=== PATIENT | female | born 1955 | race African-American/Black ===

== ENCOUNTER → 2018-02-17 | Outpatient (CLI) | payer MEDICARE ==
[~2018-02-17] MED LIST: ALLOPURINOL100 MG PO; AMITIZA8 MCG PO; AMLODIPINE BESYL5 MG PO; ASPIRIN81 MG PO; CALCITRIOL0.5 MCG PO; CARVEDILOL25 MG PO; CETIRIZINE HCL10 M1 PO; CLONIDINE HCL0.1 MG PO; CYANOCOBALAMIN SL; CYCLOBENZAPRINE10 MG PO; CYMBALTA30 MG PO; DICYCLOMINE HCL20 MG PO; DOXAZOSIN MESYLA4 MG PO; DOXEPIN HCL75 MG PO; ENBREL50 MG/1 ML SQ; FOLIC ACID1 MG PO; FUROSEMIDE40 MG PO; HUMULIN 70100 UNIT/1 SQ; HYDROCODON-ACE1 EAC9 PO; HYDROXYZINE HCL25 MG PO; KWELL TOP; LEFLUNOMIDE20 MG PO; METHADONE HCL10 MG PO; NOVOLOG MI100 UNITS/ SQ; NYSTATIN100000 UNI PO; PRAMIPEXOLE DI0.5 MG PO; PREDNISONE5 MG PO; PROAIR INHALER; QVAR INHALER; SIMVASTATIN40 MG PO; STROMECTOL3 MG PO; VICODIN
--- NOTE | 2018-02-17 15:19 | Diagnostic Imaging Report ---
TECHNIQUE: Magnetic resonance imaging of the LEFT ANKLE was performed WITHOUT injected contrast. COMPARISON: None available. HISTORY: Hindfoot pain FINDINGS: LIGAMENTS: Medial Complex: Deltoid complex intact. Lateral Complex: Intact TENDONS: Medial: Posterior tibial and flexor tendons intact. Lateral: Peroneal tendons intact. Anterior: Anterior tibial and extensor tendons intact. Achilles: Achilles tendon intact. BONES: Stress/insufficiency fracture of the posterior calcaneus. Bone marrow edema throughout the calcaneus. JOINTS: Cartilage: No focal defect is identified involving the tibiotalar joint. Other: Fluid within the joints is within physiologic limits. SOFT TISSUES: Thickening of the plantar fascia with these a fight formation. IMPRESSION: Stress/insufficiency fracture of the posterior calcaneus. Signed by: Dr. Pierre Villarreal M.D. on 02/17/2018 3:15 PM
== END ==
LOC: MRI 13:42
PROVIDERS: ATTEND Podiatrist Foot & Ankle Surgery
DX: R60.0 Localized edema (principal); T63.431A Toxic effect of venom of caterpillars, accidental (unintentional), initial encounter

== ENCOUNTER → 2018-10-26 | Day surgery (SDC) | payer MEDICARE ==
[2018-10-19 10:53] LABS: BASOPHILS # (AUTO) 0.1 (0.0-0.1); BASOPHILS % 1.2 % (0.0-1.0); EOSINOPHILS # (AUTO) 0.2 (0.0-0.4); EOSINOPHILS % 3.5 % (0.0-6.0); HEMATOCRIT 36.5 % (34.2-44.1); HEMOGLOBIN 11.6 g/dL (12.0-16.0); LYMPHOCYTES % 38.6 % (18.0-39.1); MEAN CORPUSCULAR HEMOGLOBIN 27.4 pg (28-32); MEAN CORPUSCULAR HGB CONC 31.8 g/dL (31-35); MEAN CORPUSCULAR VOLUME 86.1 fL (81-99); MONOCYTES # (AUTO) 0.7 (0.2-0.8); MONOCYTES % 12.7 % (4.4-11.3); NEUTROPHILS # (AUTO) 2.2 (2.1-6.9); NEUTROPHILS % 43.6 % (38.7-80.0); PLATELET COUNT 147 x10e3/uL (140-360); RED BLOOD COUNT 4.24 x10e6/uL (3.6-5.1); RED CELL DISTRIBUTION WIDTH 14.8 % (11.7-14.4)
[2018-10-19 11:03] LABS: INR 0.93; PROTHROMBIN TIME 13.3 seconds (11.9-14.5)
[2018-10-19 11:04] LABS: PARTIAL THROMBOPLASTIN TIME 24.7 seconds (23.8-35.5)
[2018-10-19 11:24] LABS: ANION GAP 13.2 mmol/L (8-16); CALCIUM 8.7 mg/dL (8.4-10.2); CREATININE, SERUM 2.18 mg/dL (0.57-1.11); POTASSIUM 4.2 mmol/L (3.5-5.1)
--- NOTE | 2018-10-19 11:28 | Diagnostic Imaging Report ---
EXAMINATION: CHEST 2 VIEWS INDICATION: Shoulder pain. Chest pain. Preop. COMPARISON: None FINDINGS: TUBES and LINES: Sternal wires. LUNGS: Lungs are well inflated. Lungs are clear. There is no evidence of pneumonia or pulmonary edema. PLEURA: No pleural effusion or pneumothorax. HEART AND MEDIASTINUM: Nonspecific elevation of the left posterior hemidiaphragm. The cardiomediastinal silhouette is otherwise unremarkable. BONES AND SOFT TISSUES: No acute osseous lesion. Soft tissues are unremarkable. UPPER ABDOMEN: No free air under the diaphragm. IMPRESSION: No acute thoracic abnormality. Signed by: Dr. Roland Denney M.D. on 10/19/2018 11:25 AM
[~2018-10-26] MED LIST changes: +ACETAMINOPHEN 1000 MG/100 ML IV ONE; +ALBUTEROL NEB; +BUPIVACAINE 0.5%/EPI 30 ML SDV INJ ONE; +CLINDAMYCIN PHOS 900MG/ 50ML 50 ML IV ONE; +DEXAMETHASONE SOD PHOS INJ 4 MG/ML VIAL ONE; +DEXILANT60 MG; +DICYCLOMINE HCL10 MG; +EPHEDRINE SULFATE INJ 50 MG/10 ML SYR ONE; +EPINEPHRINE HCL 1:1000 1ML 1 MG/ML AMP IV ONE; +EPINEPHRINE HCL 1:1000 1ML 1 MG/ML AMP ONE; +FENTANYL CITRATE/PF 100MCG/2 ML INJ ONE; +FIORINAL 50-321 EACH; +HUMULIN 70100 UNIT/1; +KWELL; +LIDOCAINE 2% /EPINEPHRINE 20 ML SDV INJ ONE; +LIDOCAINE HCL 2% LOCAL INJ 5 ML SDV VIAL INJ ONE; +LUNESTA3 MG PO; +METOLAZONE PO; +MIDAZOLAM HCL 2 MG/2 ML VIAL ONE; +NIFEDIPINE ER30 M1; +NORCO 10-325 T1 EACH PO; +NOVOLOG MI100 UNIT/1 SQ; +ONDANSETRON HCL INJ 2MG/ML 2ML 2 MG/ML VIAL ONE; +PROAIR HFA INH8.5 GM; +PROPOFOL IV EMULSION 10 MG/ML 20 ML VIAL ONE; +ROCURONIUM BROMIDE 10 MG/ML 5ML VIAL ONE; +ROPIVACAINE 0.5% 5 MG/ML 30 ML SDV ONE; +SEVOFLURANE INHAL SOLN 250 ML PEN BTL ONE; +TIZANIDINE HCL4 MG PO; +VENTOLIN HFA18 GM IH; +VITAMIN B-121000 MCG PO; +VITAMIN D250000 UNIT
--- OUTSIDE RECORDS SUMMARY | 2018-10-26 07:43 | XMS REPORT | Summary of Care ---
Author Organization Unknown Address Unknown Phone Unavailable Encounter HQ Encntr_alias(FIN) [id number] Date(s): 05/02/14 - 05/02/14 [facility] Outpatient Imaging - [address] [address] [place] Discharge Disposition: Home Physician Attending: Iam Pastrana MD Reason for Visit 531.30 - ACUTE STOMACH [place] Problem List No data available for this section Allergies, Adverse Reactions, Alerts Substance Reaction Severity Status morphine Active Medications No data available for this section Medications Administered During Your Visit No data available for this section Immunizations No data available for this section
--- OUTSIDE RECORDS SUMMARY | 2018-10-26 07:43 | XMS REPORT | Summary of Care ---
Author Organization Unknown Address Unknown Phone Unavailable Encounter HQ Encntr_alianiceto(FIN) [id number] Date(s): 05/07/14 - 05/07/14 [facility] Outpatient Imaging - [address] [address] [place] Discharge Disposition: Home Physician Attending: Iam [...]
--- OUTSIDE RECORDS SUMMARY | 2018-10-26 07:43 | XMS REPORT | Summary of Care ---
Author Author [facility] Organization [facility] Address Unknown Phone Unavailable Encounter JAKE Resendez(PENNIE) [id number] Date(s): 01/18/17 - 01/18/17 [facility] [address] [place], [place] [address]- [phone] Discharge Diagnosis: Elevated blood pressure Discharge Diagnosis: Insect sting Discharge Diagnosis: Pain and swelling of left lower leg Discharge Diagnosis: Cellulitis Discharge Disposition: Home or Self Care Attending Physician: Barbara Kruse MD Vital Signs Most recent to 1 2 oldest [Reference Range]: Height 160.02 cm (01/18/17 7:22 PM) Temperature Oral 98.0 DegF 98.3 DegF [96.4-99.1 DegF] (01/18/17 9:08 PM) (01/18/17 7:22 PM) Blood Pressure 186/84 mmHg 191/110 mmHg [90-140/60-90 mmHg] *HI* *HI* (01/18/17 9:08 PM) (01/18/17 7:22 PM) Respiratory Rate 18 BRMIN 22 BRMIN [14-20 BRMIN] (01/18/17 9:08 PM) *HI* (01/18/17 7:22 PM) Peripheral Pulse 78 bpm 103 bpm Rate [60-100 bpm] (01/18/17 9:08 PM) *HI* (01/18/17 7:22 PM) Weight 62.727 kg (01/18/17 7:22 PM) Body Mass Index 24.5 m2 (01/18/17 7:22 PM) Problem List Condition Effective Dates Status Health Status Informant DM (diabetes Active mellitus)(Confirmed) Renal Active disease(Confirmed) HTN Active (hypertension)(Confi rmed) Allergies, Adverse Reactions, Alerts Substance Reaction Severity Status morphine Active penicillins Active sulfa drugs Active Medications bacitracin topical 1 appl, Route: TOP, ONCE, Drug form: OINT, Priority: Stat, Start date: 01/18/17 20:31:00 CDT, Stop date: 01/18/17 20:31:00 CDT Start Date: 01/18/17 Stop Date: 01/18/17 Status: Discontinued bacitracin/neomycin/polymyxin B topical ointment 1 appl, Route: TOP, ONCE, Start date: 01/18/17 20:49:00 CDT, Stop date: 01/18/17 20:49:00 CDT Start Date: 01/18/17 Stop Date: 01/18/17 Status: Completed clindamycin 300 mg, Route: PO, ONCE, Dosing Weight 62.727, kg, Priority: STAT, Start date: 0 01/18/17 20:30:00 CDT, Stop date: 01/18/17 20:30:00 CDT Start Date: 01/18/17 Stop Date: 01/18/17 Status: Completed clindamycin 300 mg oral capsule 300 mg=1 cap, PO, Q6H, X 10 day, # 40 cap, 0 Refill(s) Start Date: 01/18/17 Stop Date: 01/28/17 Status: Ordered [place] 5/325 oral tablet 1 tab, Route: PO, Drug Form: TAB, Dosing Weight 62.727, kg, ONCE, STAT, Start da te: 01/18/17 19:56:00 CDT, Stop date: 01/18/17 19:56:00 CDT Notes: (Same as: [place] 325/5) Do not exceed 4gm/day of acetaminophen. Start Date: 01/18/17 Stop Date: 01/18/17 Status: Completed Ultram 50 mg oral tablet 1 - 2 tabs, PO, Q4-6H, PRN Pain Score 7-10, X 4 day, # 15 tab, 0 Refill(s) Start Date: 01/18/17 Stop Date: 01/22/17 Status: Ordered Results No data available for this section Immunizations No data available for this section Procedures Procedure Date Related Diagnosis Body Site Abdominal hysterectomy Biopsy of brain tissue tumor Cholecystectomy Gastric bypass operation Operation on tonsils Partial repair of rotator cuff Social History Social History Type Response Smoking Status Never smoker; Ready to change: No; Concerns about tobacco use in household: No; Exposure to Tobacco Smoke None; Cigarette Smoking Last 365 Days No; Reg Smoking Cessation Counseling No Assessment and Plan No data available for this section
--- OUTSIDE RECORDS SUMMARY | 2018-10-26 07:43 | XMS REPORT ---
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 Active Problem Chronic pain syndrome G89.4 Active Assessment High risk medication use Z79.899 Active Assessment 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
--- OUTSIDE RECORDS SUMMARY | 2018-10-26 07:43 | XMS REPORT | Summary of Care ---
Author Author [facility] Outpatient [facility] - [place] Organization [facility] [place] Address Unknown Phone Unavailable Encounter HQ Encntr_alias(FIN) [id number] Date(s): 03/20/16 - 03/20/16 [facility] Outpatient Imaging - [place] [address] [place] [phone] Discharge Disposition: Home Attending Physician: Nadege Paris MD Vital Signs No data available for this section Problem List No data available for this section Allergies, Adverse Reactions, Alerts Substance Reaction Severity Status morphine Active Medications No data available for this section Results No data available for this section Immunizations No data available for this section Procedures No data available for this section Social History No data available for this section Assessment and Plan No data available for this section
--- OUTSIDE RECORDS SUMMARY | 2018-10-26 07:43 | XMS REPORT | Continuity of Care Document ---
Author Author [facility] Interface Address Unknown Phone Unavailable Problems Problem Status Onset Date Classification Date Reported Comments Source Discharge Diagnosis: Elevated blood pressure 01/18/2017 01/21/2017 [facility] Discharge Diagnosis: Insect sting 01/18/2017 01/21/2017 [facility] Discharge Diagnosis: Pain and swelling of left lower leg 01/18/2017 01/21/2017 [facility] Discharge Diagnosis: Cellulitis 01/18/2017 01/21/2017 [facility] BITE Active 01/16/2017 [facility] M25.519 - PAIN IN UNSPECIFIED SHOULDER Active 01/23/2016 [facility] [place] DM (<span ID="[id number]">Confirmed</span>) Active Problem 01/21/2017 [facility] Renal disease Active Problem 01/21/2017 [facility] HTN (<span ID="[id number]">Confirmed</span>) Active Problem 01/21/2017 [facility] Rheumatoid arthritis of multiple sites without organ or system involvement with positive rheumatoid factor Active Problem 10/12/2018 Mikayla [place] Chronic pain syndrome Active Problem 10/12/2018 Mikayla Galindo High risk medication use Active Diagnosis 10/12/2018 Mikayla Galindo Medications Medication Details Route Status Patient Instructions Ordering Provider Order Date Source Kevzara 1.14 ml Subcutaneous Active 200 MG/1.14ML Subcutaneous every 2 weeks [facility] 12/27/2018 Mikayla Galindo Cimzia as directed Subcutaneous Active 2 X [facility]/10/2018 Mikayla [place]on Kevzara 1.14 ml Subcutaneous Active 200 MG/1.14ML Subcutaneous every 2 weeks [facility] 10/10/2018 Mikayla Galindo Tramadol HCl 1 tablet as needed Orally Active 50 MG Orally Once a day [facility] 08/29/2018 Mikayla Galindo Bacitracin 0.4 UNT/MG / Neomycin 0.0035 MG/MG / Polymyxin B 5 UNT/MG Topical Ointment 1 appl, Route: TOP, ONCE, Start date: 01/18/17 20:49:00 CDT, Stop date: 01/18/17 20:49:00 CDT Inactive 01/19/2017 [facility] clindamycin 300 mg oral capsule 300 mg=1 cap, PO, Q6H, X 10 day, # 40 cap, 0 Refill(s) Active 01/19/2017 [facility] tramadol hydrochloride 50 MG Oral Tablet [Ultram] 1 - 2 tabs, PO, Q4-6H, PRN Pain Score 7-10, X 4 day, # 15 tab, 0 Refill(s) Active 01/19/2017 [facility] Bacitracin 1 appl, Route: TOP, ONCE, Drug form: OINT, Priority: Stat, Start date: 01/18/17 20:31:00 CDT, Stop date: 01/18/17 20:31:00 CDT Inactive 01/19/2017 [facility] Clindamycin 300 mg, Route: PO, ONCE, Dosing Weight 62.727, kg, Priority: STAT, Start date: 01/18/17 20:30:00 CDT, Stop date: 01/18/17 20:30:00 CDT Inactive 01/19/2017 [facility] Acetaminophen 325 MG / Hydrocodone Bitartrate 5 MG Oral Tablet [[place] 5/325] 1 tab, Route: PO, Drug Form: TAB, Dosing Weight 62.727, kg, ONCE, STAT, Start date: 01/18/17 19:56:00 CDT, Stop date: 01/18/17 19:56:00 CDTNotes: (Same as: [place] 325/5) Do not exceed 4gm/day of acetaminophen. Inactive 01/19/2017 [facility] Allergies, Adverse Reactions, Alerts Substance Category Reaction Severity Reaction type Status Date Reported Comments Source Sulfur Adverse Reaction Info Not Available Adverse Reaction Active 10/10/2018 Mikayla Galindo morphine Assertion Drug allergy Active [facility] penicillins Assertion Drug allergy Active [facility] sulfa drugs Assertion Drug allergy Active [facility] Immunizations Immunization Date Given Site Status Last Updated Comments Source Results Order Name Results Value Reference Range Date Interpretation Comments Source Ext Lower Venous Doppler Unilat US Ext Lower Venous Doppler Unilat US Clinical Indication: Swelling. Comparison: None TECHNIQUE: Sonographic evaluation of the left lower extremity veins was performed using high resolution B-mode imaging, along with pulse and color Doppler imaging. FINDINGS: The common femoral vein, femoral vein, popliteal vein and visualized posterior tibial/calf veins are patent. There is no echogenic debris to suggest deep venous thrombosis. The saphenofemoral junction is unremarkable. IMPRESSION: 1. No DVT in the left lower extremity. SL: [id number] 01/18/2017 - - Read by: Gloria Carson MD Dictated Date/time: 01/18/17 20:25 Electronically Signed by: Gloria Carson MD 01/18/17 20:26 FINAL REPORT [facility] Bone Density DXA [employer] MA Bone Density DXA [employer] MA - Bone Density DXA [employer] MA BONE DENSITY EVALUATION: 03/20/2016 FINDINGS: Bone density evaluation was performed 03/20/2016 on the AP L1-L4 region of spine using a Hologic unit. The BMD average for the exam is 1.125 g/cm2. The Z-score is 0.70. These values indicate 1.6% of bone mineralization for young normals. Complete risk assessment of this region was not determined. An additional bone density evaluation was performed 03/20/2016 on the right femur neck using a Hologic unit. The BMD average for the exam is 0.812 g/cm2. The T-score is -0.30 and the Z-score is 0.20. This matches the World Health Organization's criteria for normal bone density and places the patient within normal limits of fracture risk. An additional bone density evaluation was performed 03/20/2016 on the right hip using a Hologic unit. The BMD average for the exam is 0.800 g/cm2. The T-score is -1.20 and the Z-score is -0.60. This matches the World Health Organization's criteria for osteopenia and places the patient at a medium risk for fracture. An additional bone density evaluation was performed 03/20/2016 on the left femur neck using a Hologic unit. The BMD average for the exam is 0.735 g/cm2. The T- score is -1.00 and the Z-score is -0.30. This matches the World Health Organization's criteria for normal bone density and places the patient within normal limits of fracture risk. An additional bone density evaluation was performed 03/20/2016 on the left hip using a Hologic unit. The BMD average for the exam is 0.840 g/cm2. The T-score is -0.80 and the Z-score is -0.30. This matches the World Health Organization's criteria for normal bone density and places the patient within normal limits of fracture risk. IMPRESSION: OSTEOPENIA Patient is at medium risk for fracture. This exam was dictated and interpreted by [id number] for SANDEEP Coronado M.D. cm/penrad:03/20/2016 14:16:57 [place] [facility]/2016 - - Read by: Salvador Horowitz MD Dictated Date/time: 03/20/16 14:16 Electronically Signed by: Salvador Horowitz MD 03/20/16 14:16 FINAL REPORT JUAN MIGUEL Us Shoulder 2+ Views Bilateral DX Shoulder 2+ Views Bilateral DX Exam: Right and left shoulder x-rays, 3 views each Reason for Exam: pain in shoulder joint region Comparison Exam: None Discussion: Right: No acute bony abnormalities identified. The glenohumeral joint appears intact. Mild osteoarthritis seen within the AC joint. No suspicious osteoblastic or osteolytic lesions seen to suggest pathologic involvement. Left: No acute bony abnormalities identified. The glenohumeral joint appears intact. Mild osteoarthritis seen within the AC joint. No suspicious osteoblastic or osteolytic lesions seen to suggest pathologic involvement. Impression: 1. 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 01/23/2016 - - Read by: Liam Deal MD Dictated Date/time: 01/23/16 10:24 Electronically Signed by: Liam Deal MD 01/23/16 10:27 FINAL REPORT JUAN MIGUEL Us Vital Signs Vital Sign Value Date Comments Source Height 64 10/10/2018 Mikayla Najam Diastolic (mm Hg) 79 10/10/2018 Mikayla Najam Systolic (mm Hg) 141 10/10/2018 Mikayla Najam Weight 150.4 10/10/2018 Mikayla Najam Height 64 08/29/2018 Mikayla Najam Diastolic (mm Hg) 60 08/29/2018 Mikayla Najam Systolic (mm Hg) 103 08/29/2018 Mikayla Najam Weight 154.4 08/29/2018 Mikayla Najam Temperature Oral (F) 98.0 F 01/19/2017 [facility] Rate 18 01/19/2017 [facility] Rate 78 01/19/2017 [facility] Systolic (mm Hg) 186 01/19/2017 [facility] Diastolic (mm Hg) 84 01/19/2017 [facility] Temperature Oral (F) 98.3 F 01/19/2017 [facility] Systolic (mm Hg) 191 01/19/2017 [facility] Diastolic (mm Hg) 110 01/19/2017 [facility] Rate 22 01/19/2017 [facility] Heart Rate 103 01/19/2017 [facility] BMI Calculated 24.5 01/19/2017 [facility] Weight 62.727 01/19/2017 [facility] Height 160.02 cm 01/19/2017 [facility] Encounters Location Location Details Encounter Type Encounter Number Reason For Visit Attending Provider ADM Date DC Date Status Source [facility] [place] [facility] [id number] Iam Arevalondu 05/02/2014 2014 [facility] [place] [facility] [place] [facility] [id number] Iam Anandu 05/07/2014 05/08/2014 [facility] [place] [facility] [place] [facility] [id number] Milicent Triche 08/02/2014 08/03/2014 [facility] [place] [facility] [place] [facility] [id number] Nadege Vo 01/23/2016 01/24/2016 [facility] [place] [facility] [place] [facility] [id number] Nadege Vo 03/20/2016 03/21/2016 [facility] [place] [facility] [id number] Barbara Kruse 01/19/2017 01/19/2017 [facility] Procedures Procedure Code Date Perfomer Comments Source Abdominal hysterectomy 176661073 [facility] Biopsy of brain tissue tumor [id number] [facility] Cholecystectomy 62972275 [facility] Gastric bypass operation 51998463 [facility] Operation on tonsils [id number] [facility] Partial repair of rotator cuff [id number] [facility]
--- OUTSIDE RECORDS SUMMARY | 2018-10-26 07:43 | XMS REPORT | Summary of Care ---
Author Organization Unknown Address Unknown Phone Unavailable Encounter HQ Encntr_alias(FIN) [id number] Date(s): 08/02/14 - 08/02/14 [facility] Outpatient Imaging - [address] [address] [place] Discharge Disposition: Home Physician Attending: Sridevi Rodríguez MD Reason for Visit 789.00 - ABDMNAL PAIN UN 625.8 - FEM GENITAL SYM Problem List No data available for this section Allergies, Adverse Reactions, Alerts Substance Reaction Severity Status morphine Active Medications No data available for this section Medications Administered During Your Visit No data available for this section Immunizations No data available for this section
--- OUTSIDE RECORDS SUMMARY | 2018-10-26 07:43 | XMS REPORT | Summary of Care ---
Author Author [facility] - [place] Organization [facility] [place] Address Unknown Phone Unavailable Encounter HQ Encntr_alias(FIN) [id number] Date(s): 01/23/16 - 01/23/16 [facility] Outpatient Imaging - [place] [address] [phone] Discharge Disposition: Home Attending Physician: Nadege Paris [...]
--- OUTSIDE RECORDS SUMMARY | 2018-10-26 07:43 | XMS REPORT ---
Author Author Mikayla Galindo Organization [employer] Address Unknown Phone Unavailable Care Team Providers Care Tool Grinder Set Up Operator Gear Name Role Phone Mikayla Galindo CP Unavailable [...] Instructions Start Date End Date Status Dosage Tramadol HCl [facility] 05742016486 50 MG Orally Once a day Aug 29, 2018 Sep 18, 2018 Active 1 tablet as needed Kevzara [facility] 76981715743 200 MG/1.14ML Subcutaneous every 2 weeks December 27, 2018 Active 1.14 ml Vital Signs Date/Time: Aug 29, 2018 Height 64 in Blood Pressure Diastolic 60 mm Hg Blood Pressure Systolic 103 mm Hg Weight 154.4 lbs Results No Known Results Summary Purpose [employer] Submission
--- OUTSIDE RECORDS SUMMARY | 2018-10-26 07:43 | XMS REPORT ---
Author Author [facility] Address Unknown Phone Unavailable Care Team Providers Care Production Control Clerk Name Role Phone ANU PEREZ Unavailable Unavailable ELIZABETHMalathi Unavailable Unavailable Problems This patient has no known problems. Allergies, Adverse Reactions, Alerts This patient has no known allergies or adverse reactions. Medications This patient has no known medications. Results Test Description Test Time Test Comments Text Results Atomic Results Result Comments CHEST 2 VIEWS 2018-10-19 11:24:00 [place] [address] Patient Name: RADHA FRITZ MR #: [id number] : 1955 Age/Sex: 63/F Req #: [id number] Adm Physician: Ordered by: ANU PEREZ MD Report #: [id number] Location: OR Room/Bed: Procedure: [id number] DX/CHEST 2 VIEWS Exam Date: 10/19/18 Exam Time: 1100 REPORT STATUS: Signed EXAMINATION: CHEST 2 VIEWS INDICATION: Shoulder pain. Chest pain. Preop. COMPARISON: None FINDINGS: TUBES and LINES: Sternal wires. LUNGS: Lungs are well inflated. Lungs are clear. There is no evidence of pneumonia or pulmonary edema. PLEURA: No pleural effusion or pneumothorax. HEART AND MEDIASTINUM: Nonspecific elevation of the left posterior hemidiaphragm. The cardiomediastinal silhouette is otherwise unremarkable. BONES AND SOFT TISSUES: No acute osseous lesion. Soft tissues are unremarkable. UPPER ABDOMEN: No free air under the diaphragm. IMPRESSION: No acute thoracic abnormality. Signed by: Dr. Roland Denney M.D. on 10/19/2018 11:25 AM Dictated By: ROLAND DENNEY MD, MD 24 Transcribed By: VICTOR MANUEL on 10/19/181124 COPY TO: ANU PEREZ MD MRI ANKLE LEFT WO [place] [address] Patient Name: RADHA FRITZ MR #: [id number] : 1955 Age/Sex: 62/F Req #: [id number] Adm Physician: Ordered by: GISELA JOHNSON DPM Report #: [id number] Location: MRI Room/Bed: Procedure: [id number] MRI/MRI ANKLE LEFT WO Exam Date: Exam Time: REPORT STATUS: Signed TECHNIQUE: Magnetic resonance imaging of the LEFT ANKLE was performed WITHOUT injected contrast. COMPARISON: None available. HISTORY: Hindfoot pain FINDINGS: LIGAMENTS: Medial Complex: Deltoid complex intact. Lateral Complex: Intact TENDONS: Medial: Posterior tibial and flexor tendons intact. Lateral: Peroneal tendons intact. Anterior: Anterior tibial and extensor tendons intact. Achilles: Achilles tendon intact. BONES: Stress/insufficiency fracture of the posterior calcaneus. Bone marrow edema throughout the calcaneus. JOINTS: Cartilage: No focal defect is identified involving the tibiotalar joint. Other: Fluid within the joints is within physiologic limits. SOFT TISSUES: Thickening of the plantar fascia with these a fight formation. IMPRESSION: Stress/insufficiency fracture of the posterior calcaneus. Signed by: Dr. Michael Herndon M.D. on 02/17/2018 3:15 PM Dictated By: MICHAEL HERNDON MD [id number] Transcribed By: VICTOR MANUEL on 02/17/18 9344 COPY TO: GISELA JOHNSON DPM
[2018-10-26 15:10] VITALS: BP 127/81
--- NOTE | 2018-10-31 13:20 | Operative Report ---
DATE OF PROCEDURE: October 26, 2018 PREOPERATIVE DIAGNOSIS: Recurrent right rotator cuff tear. POSTOPERATIVE DIAGNOSES 1. Recurrent right rotator cuff tear. 2. Glenohumeral arthrosis. 3. Right shoulder synovitis. PROCEDURES PERFORMED: The patient underwent a 1. Right shoulder examination under anesthesia. 2. Right shoulder arthroscopy. 3. Right shoulder arthroscopic debridement of synovitis. 4. Right shoulder arthroscopic repair of a massive rotator cuff tear. 5. Right shoulder arthroscopic chondroplasty of the humeral head and glenoid. 6. Right shoulder arthroscopic subacromial decompression and acromioplasty. COSMETIC ACCOUNT COORDINATOR: There was no maintenance assistant. ANESTHESIA: General endotracheal intubation anesthesia as well as a regional block. INTRAVENOUS FLUIDS: As per the anesthesia record. DESCRIPTION OF PROCEDURE AND FINDINGS: Ms. Gonzalez was taken to the operating room and placed in the supine position on the operating table. Following induction of general anesthesia as well as endotracheal intubation, the patient's right upper extremity was examined under anesthesia. She was found to have surgical scars about her shoulder consistent with a previous rotator cuff reconstruction and distal clavicle resection. There were no gross abnormalities of the shoulder joint. The patient had full passive range of motion of the shoulder. There was no evidence of instability. The patient's shoulder and upper extremity were prepped and draped in standard surgical fashion. Standard posterolateral and anterior portals were created without difficulty. The scope was placed within the shoulder joint atraumatically. The patient's long head of the biceps tendon was found to not be contained within the shoulder joint. There was significant glenohumeral arthrosis. There was significant synovitis in the shoulder joint. A shaver was placed in the shoulder joint, and a chondroplasty of the glenoid and humeral surfaces was performed. The synovitis was debrided at this time. Examination of the rotator cuff tissue demonstrated a massive retracted rotator cuff tear. The shoulder was deflated of its sterile normal saline. The scope was placed in the subacromial space, and significant bursal inflammation was encountered. A bursectomy was performed. The rotator cuff tissues were mobilized. A marginal repair was deemed possible. A shaver was used to debride the insertion site for the rotator cuff tissue. A [id number] repair was performed, and the rotator cuff tissue was then advanced into its insertion site at the level of the humerus. This resulted in a marginal repair of the patient's massive rotator cuff tear. The rotator cuff tissue was found to be both friable and of poor quality. An aggressive acromioplasty was performed. The shoulder was then deflated of its sterile normal saline. The portal sites were closed. Sterile dressings were applied, and the patient was provided a shoulder immobilizer and awakened and taken to the postanesthesia care unit in stable condition. Job#: [id number]
== END | disposition home or self-care (01) ==
LOC: OR 07:40
PROVIDERS: ATTEND Specialist
DX: M75.121 Complete rotator cuff tear or rupture of right shoulder, not specified as traumatic (principal); M19.011 Primary osteoarthritis, right shoulder; M65.811 Other synovitis and tenosynovitis, right shoulder; J44.9 Chronic obstructive pulmonary disease, unspecified; I25.10 Atherosclerotic heart disease of native coronary artery without angina pectoris; E11.22 Type 2 diabetes mellitus with diabetic chronic kidney disease; I13.0 Hypertensive heart and chronic kidney disease with heart failure and stage 1 through stage 4 chronic kidney disease, or unspecified chronic kidney disease; N18.3 Chronic kidney disease, stage 3 (moderate); I50.9 Heart failure, unspecified; I34.1 Nonrheumatic mitral (valve) prolapse; M54.2 Cervicalgia; K29.70 Gastritis, unspecified, without bleeding; K21.9 Gastro-esophageal reflux disease without esophagitis; K25.9 Gastric ulcer, unspecified as acute or chronic, without hemorrhage or perforation; K58.9 Irritable bowel syndrome, unspecified; F41.9 Anxiety disorder, unspecified; Z01.812 Encounter for preprocedural laboratory examination; Z01.818 Encounter for other preprocedural examination; Z79.82 Long term (current) use of aspirin; Z88.0 Allergy status to penicillin; Z88.2 Allergy status to sulfonamides; Z86.73 Personal history of transient ischemic attack (TIA), and cerebral infarction without residual deficits
CPT/HCPCS: 29826; 29827; 36415 ×2; 71046; 80048; 82948; 85025; 85610; 85730; J0131; J0171; J1100; J2001 ×2; J2250; J2405; J2704; J2795